=== PATIENT | female | born 1970 | race Caucasian/White ===

== ENCOUNTER 2016-11-26 20:43 | Emergency (ER) | payer MEDICAID ==
[~2016-11-26] VITALS: Ht 160 cm; Wt 74.1 kg
[~2016-11-26 20:43] MED LIST: CARI350T PO; IBUP-1542 PO; NAPR-260 PO; PROM5SYR2 PO
[2016-11-26 20:57] VITALS: Ht 160 cm; Wt 74.1 kg
--- NOTE | 2016-11-26 21:40 | ERD ---
ER Documentation Chief Complaint Date/Time DATE: 11/26/16 TIME: 21:38 Chief Complaint MONTERO + SINUS PAIN X3 DAYS. HPI 46-year-old female presents in emergency department for complaints of frontal headache and facial pain for 3 days. Patient described the pain as throbbing pain, 6/10 scale, not better or worse with anything. Patient states that he radiates to the left dental area and left ear at times. Patient denies any ear discharge. Patient denies any purulent discharge from the nose. Patient denies taking any medications to help with symptoms. ROS All systems reviewed and are negative except as per history of present illness. Medications Home Meds Active Scripts Ibuprofen* (Ibuprofen*) 600 Mg Tablet, 600 MG PO Q6H Y for PAIN, #30 TAB Prov:DUGLAS COLLINS PA-C 03/28/16 Promethazine HCl/Codeine (Prometh-Codein 6.25-10 mg/5 ml) 5 Ml Syrup, 5 ML PO Q6 Y for COUGH, #120 ML Prov:DUGLAS COLLINS PA-C 03/28/16 Carisoprodol* (Soma*) 350 Mg Tablet, 350 MG PO TID Y for MUSCLE SPASMS, #15 TAB Prov:LAURA GRIFFITHS MD 12/19/15 Naproxen* (Naprosyn*) 500 Mg Tablet, 500 MG PO BID Y for PAIN AND/OR INFLAMMATION, #30 TAB Prov:LAURA GRIFFITHS MD 12/19/15 Allergies Allergies: Coded Allergies: No Known Drug Allergies (Verified Allergy, Unknown, 12/19/15) PMhx/Soc Medical and Surgical Hx: pt denies Medical Hx, pt denies Surgical Hx Hx Alcohol Use: No Hx Substance Use: No Hx Tobacco Use: No Smoking Status: Never smoker FmHx Family History: No coronary disease, No diabetes, No other Physical Exam Vitals Vital Signs Date Time Temp Pulse Resp B/P Pulse Ox O2 Delivery O2 Flow Rate FiO2 11/26/16 20:57 97.2 71 18 135/69 71 Physical Exam GENERAL: The patient is well developed and appropriate for usual state of health, in no apparent distress. HEENT: Atraumatic. Ears: Normal tympanic membrane, no erythema or bulging. No ear canal swelling. No ear discharge. Nose: normal nasal turbinates, no erythema or swelling. Normal nasal discharge. Throat: oropharynx clear. No tonsillar swelling or tonsillar exudates. No lymphadenopathy. CHEST: Clear to auscultation bilaterally. There are no rales, wheezes or rhonchi. Tenderness on palpation of maxillary sinuses and frontal sinuses. No facial swelling noted. HEART: Regular rate and rhythm. No murmurs, clicks, rubs or gallops. No S3 or S4. ABDOMEN: Soft, nontender and nondistended. Good bowel sounds. No rebound or guarding. No gross peritonitis. No gross organomegaly or masses. No Dean sign or McBurney point tenderness. BACK: No midline or flank tenderness. EXTREMITIES: Equal pulses bilaterally. There is no peripheral clubbing, cyanosis or edema. No focal swelling or erythema. Full range of motion. Grossly neurovascularly intact. NEURO: Alert and oriented. Cranial nerves 2-12 intact. Motor strength in all 4 extremities with 5/5 strength. Sensation grossly intact. Normal speech and gait. SKIN: There is no apparent rash or petechia. The skin is warm and dry. HEMATOLOGIC AND LYMPHATIC: There is no evidence of excessive bruising or lymphedema. No gross cervical, axillary, or inguinal lymphadenopathy. Results 24 hrs Current Medications Medications (Trade) Dose Ordered Sig/Jamison Route PRN Reason Start Time Stop Time Status Last Admin Dose Admin Tramadol HCl (Ultram) 50 mg ONCE ONCE PO 11/26/16 23:00 11/26/16 23:01 DC 11/26/16 22:35 Patient was given medication for pain here in emergency department, after treatment, patient verbalized feeling much better. Patient's pain is improved. PROCEDURE: CT scan facial bones CLINICAL INDICATION: Facial pain. TECHNIQUE: A CT of the facial bones was performed without intravenous contrast. Coronal and sagittal reformats were generated. CTDIvol: 29.38 mGy. DLP: 489.22 mGy-cm. One or more of the following dose reduction techniques were used: - Automated exposure control. - Adjustment of the mA and/or kV according to patient size. - Use of iterative reconstruction technique. COMPARISON: None available FINDINGS: The soft tissues of the face are unremarkable. There is no facial fracture. The intraorbital structures are normal. The paranasal sinuses and nasal cavity are clear. The visualized intracranial soft tissues are within normal limits. IMPRESSION: 1. No facial fracture. RPTAT: HTAR .Solomon Nelson MD, MD Date Time Electronically viewed and signed by .Solomon Nelson MD, on 11/26/2016 23:23 .R/ CC: NIDA HEWITT NP Procedures/MDM Medical Decision Making: Patient headache and facial pain nonspecific at this time. No symptoms of any sinusitis. Not febrile. No ear infection noted. No symptoms of any dental abscess. There is low suspicion for neurological emergencies at this time since patients neurologic exam is normal. Patient did not have any altered level consciousness, vomiting, changes in balance or memory after incident. CT scan of the facial does not show any abnormality. Prescription showed was given for tramadol and ibuprofen for pain, is advised to follow-up with primary care doctor, possibly see a dentist. Patient is advised to return to emergency department for worsening symptoms.. Dispostion: Home. Stable Departure Diagnosis: Primary Impression: Facial pain Condition: Stable Patient Instructions: Pain Management Additional Instructions: see dentist or PMD for further work up and follow up NIDA HEWITT NP Nov 26, 2016 21:40 NIDA HEWITT NP Nov 26, 2016 21:40
[2016-11-26] MEDS ORDERED: traMADol 50 MG TAB PO ONE (23:00)
--- NOTE | 2016-11-26 23:24 | RADRPT ---
PROCEDURE: CT scan facial bones CLINICAL INDICATION: Facial pain. TECHNIQUE: A CT of the facial bones was performed without intravenous contrast. Coronal and sagitt al reformats were generated. CTDIvol: 29.38 mGy. DLP: 489.22 mGy-cm. One or more of the following dose reduction techniques were used: - Automated exposure control. - Adjustment of the mA and/or kV according to patient size. - Use of iterative reconstruction technique. COMPARISON: None available FINDINGS: The soft tissues of the face are unremarkable. There is no facial fracture. The intraorbital struc tures are normal. The paranasal sinuses and nasal cavity are clear. The visualized intracranial so ft tissues are within normal limits. IMPRESSION: 1. No facial fracture. RPTAT: HTAR .Solomon Nelson MD, Date Time Electronically viewed and signed by .Solomon Nelson MD, on 11/26/2016 23:23 .R/
[2016-11-26] MEDS ORDERED: IBUP-1542 PO (23:45)
[2016-11-26] MEDS ORDERED: TRAM50TA2 PO (23:45)
[2016-11-27 00:02] VITALS: BP 128/70; PULSE 81; RESP 18; TEMP 98
== END 2016-11-27 00:03 | disposition home or self-care (01) ==
LOC: FTE 20:43
DX: R51 Headache (principal)
CPT/HCPCS: 70486; Z7502; Z7610

== ENCOUNTER 2017-03-21 16:29 | Emergency (ER) | payer MEDICAID ==
[~2017-03-21] VITALS: Ht 160 cm; Wt 74.8 kg
[~2017-03-21 16:29] MED LIST changes: +TRAM50TA2 PO
[2017-03-21 16:34] VITALS: Ht 160 cm; Wt 74.8 kg
[2017-03-21] MEDS ORDERED: SOD CHLORIDE 0.9% 500 ML IV STA (20:05)
[2017-03-21] MEDS ORDERED: KETOROLAC 15 MG INJ IV STA (20:05)
--- NOTE | 2017-03-21 20:16 | ERD ---
ER Documentation Chief Complaint Chief Complaint chest pain with numbness on right face after taking motrin last night HPI 47-year-old woman complains of low back pain and chest pain 2 days, she states symptoms began after pushing a heavy couch at home, while moving the couch she experienced low back pain and used 3 tablets of ibuprofen for her low back pain , and states her chest pain began after using ibuprofen. The chest pain is nonexertional nonradiating. She denies cough, no fevers or chills, no shortness of breath, no dysuria hematuria, no headache or blurry vision. ROS All systems reviewed and are negative except as per history of present illness. Medications Home Meds Active Scripts Naproxen* (Naprosyn*) 500 Mg Tablet, 500 MG PO BID Y for PAIN AND/OR INFLAMMATION, #30 TAB Prov:LAURA GRIFFITHS MD 03/21/17 Discontinued Scripts Ibuprofen* (Motrin*) 600 Mg Tab, 600 MG PO Q6H Y for PAIN AND OR ELEVATED TEMP, #30 TAB Prov:NIDA HEWITT NP 11/26/16 Tramadol HCl (Tramadol HCl) 50 Mg Tablet, 50 MG PO Q6 Y for PAIN, #20 TAB Prov:NIDA HEWITT NP 11/26/16 Ibuprofen* (Ibuprofen*) 600 Mg Tablet, 600 MG PO Q6H Y for PAIN, #30 TAB Prov:DUGLAS COLLINS PA-C 03/28/16 Promethazine HCl/Codeine (Prometh-Codein 6.25-10 mg/5 ml) 5 Ml Syrup, 5 ML PO Q6 Y for COUGH, #120 ML Prov:DUGLAS COLLINS PA-C 03/28/16 Carisoprodol* (Soma*) 350 Mg Tablet, 350 MG PO TID Y for MUSCLE SPASMS, #15 TAB Prov:LAURA GRIFFITHS MD 12/19/15 Naproxen* (Naprosyn*) 500 Mg Tablet, 500 MG PO BID Y for PAIN AND/OR INFLAMMATION, #30 TAB Prov:LAURA GRIFFITHS MD 12/19/15 Allergies Allergies: Coded Allergies: Penicillins (Unverified Allergy, Unknown, 03/21/17) PMhx/Soc None Hx Alcohol Use: No Hx Substance Use: No Hx Tobacco Use: No FmHx Family History: No diabetes Physical Exam Vitals Vital Signs Date Time Temp Pulse Resp B/P Pulse Ox O2 Delivery O2 Flow Rate FiO2 03/21/17 21:26 97.8 74 16 112/94 100 Room Air 03/21/17 16:34 99.7 97 22 143/82 98 Physical Exam GENERAL: Well-developed, well-nourished, well-hydrated, in no apparent distress , looks nontoxic in appearance HEENT: Moist mucous membranes, pink conjunctiva, no cervical spine tenderness or step-off deformities, no goiter, no jaundice or icterus, extraocular movements intact without pain. No submandibular induration, and no pharyngeal erythema NEURO: Alert and oriented 3, cranial nerves II through XII intact bilaterally, pupils equal round reactive to light, no focal deficits or facial asymmetry, sensation intact distally Strength 5/5 in upper and lower extremities bilaterally CARDIAC: Regular rate and rhythm, no murmurs rubs or gallops LUNGS: Clear bilaterally no wheezing crackles or stridor ABDOMEN: Soft nontender, no guarding, no rigidity, no rebound, no psoas sign no obturator sign. Normoactive bowel sounds SKIN: Warm and dry to touch, no abrasions, contusions, or hematomas, no lacerations, no ecchymosis, no target lesions, and without ulcers EXTREMITIES: No clubbing cyanosis or edema, calves are bilaterally symmetrical, no Homans sign, no popliteal cord sign. Distal pulses equal and bilateral PSYCH: Normal affect without agitation or irritability Result Diagram: 03/21/17200903/21/172009 Results 24 hrs Laboratory Tests Test 03/21/17 20:10 White Blood Count 9.510^3/ul Red Blood Count 4.6510^6/ul Hemoglobin 13.7g/dl Hematocrit 40.2% Mean Corpuscular Volume 86.5fl Mean Corpuscular Hemoglobin 29.5pg Mean Corpuscular Hemoglobin Concent 34.1g/dl Red Cell Distribution Width 13.5% Platelet Count 90739^3/UL Mean Platelet Volume 11.0fl Neutrophils % 58.2% Lymphocytes % 31.1% Monocytes % 6.7% Eosinophils % 3.2% Basophils % 0.4% Nucleated Red Blood Cells % 0.0/100WBC Neutrophils # 5.510^3/ul Lymphocytes # 2.910^3/ul Monocytes # 0.610^3/ul Eosinophils # 0.310^3/ul Basophils # 0.010^3/ul Nucleated Red Blood Cells # 0.010^3/ul Urine Color STRAW Urine Clarity CLEAR Urine pH 5.0 Urine Specific [place] 1.012 Urine Ketones NEGATIVEmg/dL Urine Nitrite NEGATIVEmg/dL Urine Bilirubin NEGATIVEmg/dL Urine Urobilinogen NEGATIVEmg/dL Urine Leukocyte Esterase NEGATIVELeu/ul Urine Hemoglobin NEGATIVEmg/dL Urine Glucose NEGATIVEmg/dL Urine Total Protein NEGATIVEmg/dl Sodium Level 139mmol/L Potassium Level 4.1mmol/L Chloride Level 104mmol/L Carbon Dioxide Level 23mmol/L Anion Gap 16 Blood Urea Nitrogen 9mg/dl Creatinine 0.78mg/dl Glucose Level 73mg/dl Calcium Level 9.1mg/dl Total Bilirubin 0.2mg/dl Direct Bilirubin 0.00mg/dl Indirect Bilirubin 0.2mg/dl Aspartate Amino Transf (AST/SGOT) 22IU/L Alanine Aminotransferase (ALT/SGPT) 34IU/L Alkaline Phosphatase 90IU/L Troponin I < 0.012ng/ml Total Protein 7.1g/dl Albumin 4.0g/dl Globulin 3.10g/dl Albumin/Globulin Ratio 1.29 Lipase 98U/L Current Medications Medications (Trade) Dose Ordered Sig/Jamison Route PRN Reason Start Time Stop Time Status Last Admin Dose Admin Sodium Chloride (NS) 500 ml @ 500 mls/hr Q1H STAT IV 03/21/17 20:05 03/21/17 21:04 DC 03/21/17 20:24 Ketorolac Tromethamine (Toradol) 15 mg ONCE STAT IV 03/21/17 20:05 03/21/17 20:07 DC 03/21/17 20:23 Alprazolam (Xanax) 0.5 mg ONCE ONCE PO 03/21/17 20:30 03/21/17 20:31 DC 03/21/17 20:23 Procedures/MDM IV line was established patient was placed on diagnostic cardiac sonographer rhythm strip revealed a sinus rhythm at about 80 bpm with upright P and T waves. Patient was afebrile EKG performed, read by me: 81 bpm, normal sinus rhythm, normal axis, no acute ST segment changes, narrow QRS complex, with good R-wave progression in precordial leads. One AP view of the chest performed, read by me reveals no acute infiltrates, normal mediastinum, sharp costophrenic and cardiac borders, no air under the diaphragm. Otherwise unremarkable chest x-ray. I administered 500 cc normal saline IV 1, Toradol 15 mg IV 1 and alprazolam 0.5 mg p.o. for her symptoms. CBC and electrolytes were normal, liver function tests were normal, troponin was negative. Urine analysis was negative for infection. Differential diagnoses considered, included but not limited to acute coronary syndrome, pulmonary embolism, aortic dissection, abdominal aortic aneurysm, sepsis, stroke, meningitis, encephalitis, pneumonia, appendicitis, cholecystitis , bowel obstruction, pyelonephritis, nephrolithiasis, cystitis, as well as metabolic, hematologic, and electrolyte abnormalities. As well as abscess, cellulitis, fractures, and dislocations. Patient feels much better at this time, and vital signs are normal, symptoms have improved. I did give strict instructions to return to the ED if symptoms continue or worsen, patient will otherwise follow-up with primary care physician. Patient understood instructions and agreed to plan. Disclaimer: Inadvertent spelling and grammatical errors are likely due to EHR/ dictation software use and do not reflect on the overall quality of patient care. Also, please note that the electronic time recorded on this note does not necessarily reflect the actual time of the patient encounter. Departure Diagnosis: Primary Impression: Chest pain Chest pain type: unspecified Qualified Code: R07.9 - Chest pain, unspecified type Additional Impression: Lumbar back sprain Encounter type: initial encounter Qualified Code: S33.5XXA - Lumbar sprain, initial encounter Condition: Good LAURA GRIFFITHS MD Mar 21, 2017 20:16
[2017-03-21 20:30] LABS: BASOPHILS % 0.4 % (0.0-2.0); EOSINOPHILS # 0.3 10^3/ul (0.0-0.5); EOSINOPHILS % 3.2 % (0.0-7.0); HEMATOCRIT 40.2 % (37.0-47.0); HEMOGLOBIN 13.7 g/dl (12.0-16.0); LYMPHOCYTES # 2.9 10^3/ul (0.8-2.9); LYMPHOCYTES % 31.1 % (15.0-51.0); MEAN CORPUSCULAR HEMOGLOBIN 29.5 pg (29.0-33.0); MEAN CORPUSCULAR HGB CONC 34.1 g/dl (32.0-37.0); MEAN CORPUSCULAR VOLUME 86.5 fl (82.0-101.0); MONOCYTE # 0.6 10^3/ul (0.3-0.9); MONOCYTES % 6.7 % (0.0-11.0); NEUTROPHIL # 5.5 10^3/ul (1.6-7.5); NEUTROPHILS % 58.2 % (39.0-77.0); PLATELET COUNT 230 10^3/UL (140-415); RED BLOOD COUNT 4.65 10^6/ul (4.20-5.40); RED CELL DISTRIBUTION WIDTH 13.5 % (11.5-14.5); WHITE BLOOD COUNT 9.5 10^3/ul (4.8-10.8)
[2017-03-21] MEDS ORDERED: ALPRAZOLAM 0.25 MG TAB PO ONE (20:30)
[2017-03-21 20:43] LABS: ADD UMIC NO; UR ASCORBIC ACID 40 mg/dL (NEGATIVE); UR BILIRUBIN (Dip) NEGATIVE (NEGATIVE); UR BLOOD (Dip) NEGATIVE (NEGATIVE); UR CLARITY CLEAR (CLEAR); UR COLOR STRAW (YELLOW); UR GLUCOSE (Dip) NEGATIVE (NEGATIVE); UR KETONES (Dip) NEGATIVE (NEGATIVE); UR LEUKOCYTE ESTERASE (Dip) NEGATIVE Leu/ul (NEGATIVE); UR NITRITE (Dip) NEGATIVE (NEGATIVE); UR SPECIFIC GRAVITY (Dip) 1.012 (1.003-1.030); UR TOTAL PROTEIN (Dip) NEGATIVE (NEGATIVE); UR UROBILINOGEN (Dip) NEGATIVE (NEGATIVE)
--- NOTE | 2017-03-21 20:58 | RADRPT ---
PROCEDURE: XR Chest. CLINICAL INDICATION: Abdominal pain. TECHNIQUE: Single frontal chest x-ray. COMPARISON: Chest radiograph 03/28/2016. FINDINGS: The cardiomediastinal silhouette is unremarkable. No pneumothorax, pleural effusion or consolidation is seen. No acute osseous abnormality is noted. IMPRESSION: 1. No acute cardiopulmonary abnormality. No significant interval change. RPTAT: HFN .Stephanie Chamberlain MD, MD Date Time Electronically viewed and signed by .Stephanie Chamberlain MD, on 03/21/2017 20:58 .N/
[2017-03-21 21:02] LABS: ALANINE AMINOTRANSFERASE 34 IU/L (13-69); ALBUMIN/GLOBULIN RATIO 1.29; ALKALINE PHOSPHATASE 90 IU/L (42-121); ANION GAP 16 (8-16); ASPARTATE AMINO TRANSFERASE 22 IU/L (15-46); BILIRUBIN,INDIRECT 0.2 mg/dl (0-1.1); BILIRUBIN,TOTAL 0.2 mg/dl (0.2-1.3); BLOOD UREA NITROGEN 9 mg/dl (7-20); CALCIUM 9.1 mg/dl (8.4-10.2); CARBON DIOXIDE 23 mmol/L (21-31); CHLORIDE 104 mmol/L (97-110); CREATININE 0.78 mg/dl (0.44-1.00); GLUCOSE 73 mg/dl (70-220); POTASSIUM 4.1 mmol/L (3.5-5.1); SODIUM 139 mmol/L (135-144); TOTAL PROTEIN 7.1 g/dl (6.1-8.1)
[2017-03-21 21:15] LABS: TROPONIN-I < 0.012 ng/ml (0.00-0.12)
[2017-03-21 21:26] VITALS: BP 112/94; PULSE 74; RESP 16; TEMP 97.8
[2017-03-21] MEDS ORDERED: NAPR-260 PO (21:26)
== END 2017-03-21 21:31 | disposition home or self-care (01) ==
LOC: E/R 16:29
DX: S33.5XXA Sprain of ligaments of lumbar spine, initial encounter (principal); S29.9XXA Unspecified injury of thorax, initial encounter; R07.9 Chest pain, unspecified; X58.XXXA Exposure to other specified factors, initial encounter; Y92.9 Unspecified place or not applicable
CPT/HCPCS: 36415; 71010; 80053; 81003; 83690; 84484; 85025; 93005; 96374; J1885; J7040; Z7502; Z7610

== ENCOUNTER 2017-09-29 14:53 | Emergency (ER) | END 2017-09-29 17:12 | disposition home or self-care (01) ==

== ENCOUNTER 2018-05-31 13:36 | Emergency (ER) | payer MEDICAID ==
[~2018-05-31] VITALS: Wt 81.0 kg
[~2018-05-31 13:36] MED LIST changes: -CARI350T PO; -IBUP-1542 PO; +IBUP-1561 PO; -NAPR-260 PO; +NAPR-985 PO; -PROM5SYR2 PO; -TRAM50TA2 PO
[2018-05-31 13:37] VITALS: BP 132/71; PULSE 81; RESP 18
[2018-05-31] MEDS ORDERED: CLIN300C10 PO (14:38)
[2018-05-31] MEDS ORDERED: IBUP-1542 PO (14:38)
--- NOTE | 2018-05-31 14:41 | ERD ---
ER Documentation Chief Complaint Chief Complaint UPPER RIGHT TOOTH X 3 DAYS HPI 48-year-old female presents the emergency department complaining of tooth pain. Patient states she has a chronic problem with her right upper molar. Over the last 3 days, she is had increasing pain in the right tooth. She reports no fe vers or chills. She reports no facial swelling. She reports no discharge or drainage. ROS All systems reviewed and are negative except as per history of present illness. Medications Home Meds Active Scripts Ibuprofen* (Ibuprofen*) 600 Mg Tablet, 600 MG PO Q6H PRN for PAIN, #30 TAB Prov:DUONG POND 05/31/18 Clindamycin Hcl* (Clindamycin Hcl*) 300 Mg Capsule, 300 MG PO TID for 10 Days, CAP Prov:DUONG POND 05/31/18 Ibuprofen* (Motrin*) 400 Mg Tab, 400 MG PO Q6H PRN for PAIN AND OR ELEVATED TEMP, #30 TAB Prov:DUGLAS COLLINS PA-C 09/29/17 Naproxen* (Naprosyn*) 500 Mg Tablet, 500 MG PO BID PRN for PAIN AND/OR INFLAMMATION, #30 TAB Prov:LAURA GRIFFITHS MD 03/21/17 Allergies Allergies: Coded Allergies: Penicillins (Unverified Allergy, Unknown, 09/29/17) PMhx/Soc History of Surgery: Yes (TUBAL LIGATION ) Anesthesia Reaction: No Hx Neurological Disorder: No Hx Respiratory Disorders: No Hx Cardiac Disorders: No Hx Psychiatric Problems: No Hx Miscellaneous Medical Probl: No Hx Alcohol Use: No Hx Substance Use: No Hx Tobacco Use: No Smoking Status: Never smoker Physical Exam Vitals Vital Signs Date Temp Pulse Resp B/P (MAP) Pulse Ox O2 O2 Flow FiO2 Time Delivery Rate 05/31/18 98.3 81 18 132/71 99 13:37 (91) Physical Exam GENERAL: The patient is well developed and appropriate for usual state of health in no apparent distress HEENT: Pupils equal, round, and reactive to light. EOMI. There is no scleral icterus. Patient has a eroded right upper molar. No gingival abscess noted. NECK: C-spine is soft and supple, there is no meningismus. There is no cervical lymphadenopathy. LUNGS: Clear to auscultation bilaterally. There are no rales, wheezes or rhonchi. HEART: Regular rate and rhythm, no murmurs, clicks, rubs or gallops. Procedures/MDM Patient was taken to a room, seen and examined Medical decision m[age]-year-old female presents the emergency department with what appears to be a dental cavity and likely secondary infection. At this time there is no evidence of facial cellulitis or high risk dental infection. Patient appears to be clinically well and appropriate for outpatient care with referral back to her dentist and antibiotic therapy. Departure Diagnosis: Primary Impression: Dental infection Condition: Stable Patient Instructions: Dental Cavity Additional Instructions: Please see your dentist as soon as possible. DUONG POND May 31, 2018 14:41
== END 2018-05-31 15:06 | disposition home or self-care (01) ==
LOC: FTE 13:36
DX: K04.7 Periapical abscess without sinus (principal)
CPT/HCPCS: 99283

== ENCOUNTER 2018-07-05 13:25 | Emergency (ER) | payer MEDICAID ==
[~2018-07-05] VITALS: Ht 160 cm; Wt 74.7 kg
[~2018-07-05 13:25] MED LIST changes: +CLIN300C10 PO; +IBUP-1542 PO
[2018-07-05 13:51] VITALS: Ht 160 cm; Wt 74.7 kg
[2018-07-05] MEDS ORDERED: KETOROLAC 30 MG INJ IM STA (16:19)
[2018-07-05] MEDS ORDERED: IBUP-1542 PO (17:33)
[2018-07-05] MEDS ORDERED: ACET-141 PO (17:33)
--- NOTE | 2018-07-05 17:38 | ERD ---
ER Documentation Chief Complaint Chief Complaint Posterior head pain after lamp fell on head last night. HPI 48-year-old female presents for posterior head pain status post a lap falling on her head last night. She states she is 8 out of 10 pain. Denies any bleeding. Denies any loss of consciousness or vomiting. The lamp was from the ceiling. She denies any significant past medical history. ROS All systems reviewed and are negative except as per history of present illness. Medications Home Meds Active Scripts Ibuprofen* (Motrin*) 600 Mg Tab, 600 MG PO Q6H PRN for PAIN AND OR ELEVATED TEMP, #30 TAB Prov:MARYCHUY MCKEON 07/05/18 Acetaminophen* (Acetaminophen*) 500 MG Extra Strength Tablet, 500 MG PO Q4H PRN for PAIN AND OR ELEVATED TEMP, #30 TAB Prov:MARYCHUY MCKEON 07/05/18 Ibuprofen* (Ibuprofen*) 600 Mg Tablet, 600 MG PO Q6H PRN for PAIN, #30 TAB Prov:DUONG POND 05/31/18 Clindamycin Hcl* (Clindamycin Hcl*) 300 Mg Capsule, 300 MG PO TID for 10 Days, CAP Prov:DUONG POND 05/31/18 Ibuprofen* (Motrin*) 400 Mg Tab, 400 MG PO Q6H PRN for PAIN AND OR ELEVATED TEMP, #30 TAB Prov:DUGLAS COLLINS PA-C 09/29/17 Naproxen* (Naprosyn*) 500 Mg Tablet, 500 MG PO BID PRN for PAIN AND/OR INFLAMMATION, #30 TAB Prov:LAURA GRIFFITHS MD 03/21/17 Allergies Allergies: Coded Allergies: Penicillins (Unverified Allergy, Unknown, 09/29/17) PMhx/Soc History of Surgery: Yes (TUBAL LIGATION ) Anesthesia Reaction: No Hx Neurological Disorder: No Hx Respiratory Disorders: No Hx Cardiac Disorders: No Hx Psychiatric Problems: No Hx Miscellaneous Medical Probl: No Hx Alcohol Use: No Hx Substance Use: No Hx Tobacco Use: No Smoking Status: Never smoker Physical Exam Vitals Vital Signs Date Temp Pulse Resp B/P (MAP) Pulse Ox O2 O2 Flow FiO2 Time Delivery Rate 07/05/18 98.6 77 18 128/65 98 13:51 (86) Physical Exam Const: No acute distress Head: Atraumatic, no palpable scalp depression, no cr sign Eyes: Normal Conjunctiva ENT: Normal External Ears, Nose and Mouth. Neck: Full range of motion. No meningismus. No midline tenderness Resp: Clear to auscultation bilaterally Cardio: Regular rate and rhythm, no murmurs Skin: No petechiae or rashes Ext: No cyanosis, or edema, 5 out of 5 muscle strength bilateral upper and lower extremity Neur: Awake and alert, bilateral upper extremity sensation intact Psych: Normal Mood and Affect Results 24 hrs Laboratory Tests Test 07/05/18 16:41 POC Beta HCG, Qualitative NEGATIVE Current Medications Medications Dose Sig/Jamison Start Time Status Last (Trade) Ordered Route PRN Stop Time Admin Dose Reason Admin Ketorolac 30 mg ONCE STAT 07/05/18 DC 07/05/18 Tromethamine IM 16: 16:47 (Toradol) 07/05/18 16:20 Procedures/MDM Medical Decision Making: Differential diagnosis includes but not limited to closed head injury, contusion, skull fracture, Patient appeared well on physical exam. Patient was neurovascular intact Examination of the posterior head without any depressed fractures noted ED course: Patient was given Toradol. Symptoms improved with treatment. Prescription(s): Patient given prescription for supportive medication(s). Patient advised to follow up with PCP in 1-2 days. Patient advised to return to ED for new or worsening symptoms. Patient stable on discharge from the ED. Disclaimer: Inadvertent spelling and grammatical errors are likely due to EHR/dictation software use and do not reflect on the overall quality of patient care. Also, please note that the electronic time recorded on this note does not necessarily reflect the actual time of the patient encounter. Departure Diagnosis: Primary Impression: Acute head injury Encounter type: initial encounter Qualified Codes: S09.90XA - Unspecified injury of head, initial encounter Condition: Fair Patient Instructions: HEAD INJURY, No Wake-Up (Adult) Referrals: COMMUNITY CLINICS YOU HAVE RECEIVED A MEDICAL SCREENING EXAM AND THE RESULTS INDICATE THAT YOU DO NOT HAVE A CONDITION THAT REQUIRES URGENT TREATMENT IN THE EMERGENCY DEPARTMENT. FURTHER EVALUATION AND TREATMENT OF YOUR CONDITION CAN WAIT UNTIL YOU ARE SEEN IN YOUR DOCTORS OFFICE WITHIN THE NEXT 1-2 DAYS. IT IS YOUR RESPONSIBILITY TO MAKE AN APPOINTMENT FOR FOLOW-UP CARE. IF YOU HAVE A PRIMARY DOCTOR --you should call your primary doctor and schedule an appointment IF YOU DO NOT HAVE A PRIMARY DOCTOR YOU CAN CALL OUR PHYSICIAN REFERRAL HOTLINE AT IF YOU CAN NOT AFFORD TO SEE A PHYSICIAN YOU CAN CHOSE FROM THE FOLLOWING PS[facility]ATRIC HOSPITAL CLINICS [facility] [address] [facility] [address] [facility] [address] [facility] [address] [facility] [address] [facility]. [facility]. [address] Additional Instructions: Llame al doctor MAANA y khoa greg DYANA PARA DENTRO DE 1-2 SEAY.Dgale a la secretaria que nosotros le instruimos hacer esta dyana.Avise o llame si perdomo condicin se empeora antes de la dyana. Regresa aqui si peor o no mejor. MARYCHUY MCKEON DO Jul 05, 2018 17:38
[2018-07-05 17:42] VITALS: BP 131/69; PULSE 70; RESP 18
== END 2018-07-05 17:43 | disposition home or self-care (01) ==
LOC: FTE 13:25
DX: S09.90XA Unspecified injury of head, initial encounter (principal); W20.8XXA Other cause of strike by thrown, projected or falling object, initial encounter; Y92.9 Unspecified place or not applicable
CPT/HCPCS: 81025; 96372; J1885; Z7502